=== PATIENT | male | born 1945 | race Caucasian/White ===

== ENCOUNTER 2018-10-24 17:11 | Inpatient (IN) | payer MEDICARE, OTHER ==
[2018-10-24] MEDS ORDERED: ASPIRIN 81 MG TABLET, CHEWABLE PO ONE (17:23)
[2018-10-24 17:42] LABS: ABSOLUTE BASOPHILS # (AUTO) 0.1 10^3/uL (0.0-0.2); ABSOLUTE EOSINOPHILS # (AUTO) 0.2 10^3/uL (0.0-0.6); ABSOLUTE LYMPHOCYTES (AUTO) 1.9 10^3/uL (0.5-4.7); ABSOLUTE MONOCYTES (AUTO) 0.7 10^3/uL (0.1-1.4); ABSOLUTE NEUT (AUTO) 5.1 10^3/uL (1.7-8.2); EOSINOPHILS % (AUTO) 2.3 % (0-6); HEMATOCRIT 41.4 % (37.9-51.0); HEMOGLOBIN 14.2 g/dL (13.5-17.0); LYMPHOCYTES % (AUTO) 23.6 % (13-45); MEAN CORPUSCULAR HEMOGLOBIN 29.5 pg (27.0-33.4); MEAN CORPUSCULAR HGB CONC 34.2 g/dL (32.0-36.0); MEAN CORPUSCULAR VOLUME 86 fl (80-97); MONOCYTES % (AUTO) 8.6 % (3-13); PLATELET COUNT 204 10^3/uL (150-450); SEGMENTED NEUTROPHILS % (AUTO) 64.5 % (42-78); TOTAL CELLS COUNTED % (AUTO) 100 %; WHITE BLOOD COUNT 7.9 10^3/uL (4.0-10.5)
[2018-10-24 18:02] LABS: ALANINE AMINOTRANSFERASE 46 U/L (21-72); ALBUMIN 4.8 g/dL (3.5-5.0); ALKALINE PHOSPHATASE 70 U/L (38-126); ANION GAP 10 (5-19); ASPARTATE AMINO TRANSFERASE 41 U/L (17-59); BILIRUBIN,DIRECT 0.3 mg/dL (0.0-0.4); BILIRUBIN,TOTAL 0.5 mg/dL (0.2-1.3); BLOOD UREA NITROGEN 22 mg/dL (7-20); CALCIUM 9.6 mg/dL (8.4-10.2); CARBON DIOXIDE 32 mmol/L (22-30); CHLORIDE 101 mmol/L (98-107); CREATINE KINASE 490 U/L (55-170); GLUCOSE 170 mg/dL (75-110); POTASSIUM 3.8 mmol/L (3.6-5.0); SODIUM 142.6 mmol/L (137-145); TOTAL PROTEIN 7.3 g/dL (6.3-8.2)
[2018-10-24 18:12] LABS: CREATINE KINASE MB 6.03 ng/mL (<4.55)
--- NOTE | 2018-10-24 18:12 | RADIOLOGY REPORT (SQ) ---
EXAM DESCRIPTION: CHEST SINGLE VIEW COMPLETED DATE/TIME: 10/24/2018 5:48 pm REASON FOR STUDY: cp COMPARISON: None. EXAM PARAMETERS: NUMBER OF VIEWS: One view. TECHNIQUE: Single frontal radiographic view of the chest acquired. RADIATION DOSE: NA LIMITATIONS: None. FINDINGS: LUNGS AND PLEURA: No opacities, masses or pneumothorax. No pleural effusion. MEDIASTINUM AND HILAR STRUCTURES: No masses. Contour normal. HEART AND VASCULAR STRUCTURES: Heart normal in size. Normal vasculature. BONES: No acute findings. HARDWARE: Lower thoracic posterior fusion hardware. OTHER: Mildly elevated right hemidiaphragm. IMPRESSION: NO ACUTE RADIOGRAPHIC FINDING IN THE CHEST. TECHNICAL DOCUMENTATION: JOB ID: [id number] [id number] 2010 [employer]- All Rights Reserved Reading location - IP/workstation name: [email or web address]
[2018-10-24 18:13] LABS: TROPONIN I 0.039 ng/mL
--- NOTE | 2018-10-24 21:21 | ER Document Report ---
ED General - General Chief Complaint: Chest Pain Stated Complaint: CHEST PAIN Time Seen by Provider: 10/24/18 18:24 Primary Care Provider: DARIELA PRIETO MD [Primary Care Provider] - Follow up as needed Mode of Arrival: Ambulatory Information source: Patient Notes: This is a 73-year-old man with a history of coronary artery disease (multiple stents), GERD (history of fundoplication) who presents to the emergency room with an episode of chest discomfort which she describes as "needling". He does state he had some sharp pain in the left arm. He states that it is not exactly like the anginal equivalents he has had in the past. He took a GI cocktail with out significant relief. 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 Currently the patient states he feels very good. - HPI Onset: Last week Onset/Duration: Intermittent Quality of pain: Other - "Needling" Severity: Mild Pain Level: Denies Associated symptoms: denies: Diarrhea, Fever, Nausea, Vomiting, Shortness of breath Exacerbated by: Denies Relieved by: Denies Similar symptoms previously: Yes Recently seen / treated by doctor: Yes - Related Data Allergies/Adverse Reactions: carbamazepine [From Tegretol] Allergy (Verified 10/24/18 17:41) isosorbide [From Imdur] Allergy (Verified 10/24/18 17:41) Past Medical History - General Information source: Patient - Social History Smoking Status: Never Smoker Cigarette use (# per day): No Chew tobacco use (# tins/day): No Frequency of alcohol use: None Drug Abuse: None Lives with: Spouse/Significant other Family History: None Patient has suicidal ideation: No Patient has homicidal ideation: No - Past Medical History Cardiac Medical History: Reports: Hx Heart Attack, Hx Hypercholesterolemia, Hx Hypertension Endocrine Medical History: Reports: Hx Diabetes Mellitus Type 2 Renal/ Medical History: Denies: Hx Peritoneal Dialysis Past Surgical History: Reports: Hx Cardiac Catheterization - 8 stents, Hx Tricia cystectomy, Hx Orthopedic Surgery - spinal Review of Systems - Review of Systems Constitutional: denies: Chills, Fever EENT: No symptoms reported Cardiovascular: Chest pain. denies: Syncope, Edema Respiratory: denies: Cough, Hemoptysis, Short of breath, Wheezing Gastrointestinal: See HPI Genitourinary: No symptoms reported Male Genitourinary: No symptoms reported Musculoskeletal: No symptoms reported Skin: No symptoms reported Hematologic/Lymphatic: No symptoms reported Neurological/Psychological: No symptoms reported Physical Exam - Vital signs Vitals: Temp Pulse Resp BP Pulse Ox 99.3 F 78 18 168/81 H 96 10/24/18 17:21 10/24/18 17:21 10/24/18 17:21 10/24/18 17:21 10/24/18 17:21 Notes: Physical exam: GENERAL: he is alert and oriented x3, no acute distress HEAD: Atraumatic, normocephalic. EYES: Pupils equal round and reactive to light, extraocular movements intact, sclera anicteric, conjunctiva are normal. ENT: TMs normal, nares patent, oropharynx clear without exudates. Moist mucous membranes. NECK: Normal range of motion, supple without obvious mass or JVD. LUNGS: Breath sounds clear to auscultation bilaterally and equal. No wheezes ra les or rhonchi. HEART: Regular rate and rhythm without murmurs, rubs or gallops. ABDOMEN: Soft, normoactive bowel sounds. No tenderness to palpation. No guarding, no rebound. No masses appreciated. EXTREMITIES: Normal range of motion, no pitting or edema. No clubbing or cyanosis. NEUROLOGICAL: Cranial nerves II through XII grossly intact. Normal speech, moving all extremities. PSYCH: Normal mood, normal affect. SKIN: Warm, Dry, normal turgor, no rashes or lesions noted. Course - Vital Signs Vital signs: Temp Pulse Resp BP Pulse Ox 99.3 F 78 14 140/70 H 97 10/24/18 17:21 10/24/18 17:21 10/24/18 23:01 10/24/18 23:01 10/24/18 23:01 - Laboratory Result Diagrams: 10/24/18 17:30 10/24/18 17:30 Laboratory results interpreted by me: 10/24/18 10/24/18 17:30 17:30 Carbon Dioxide 32 H BUN 22 H Glucose 170 H Creatine Kinase 490 H CK-MB (CK-2) 6.03 H - Diagnostic Test Radiology reviewed: Image reviewed, Reports reviewed - X-rays clear - EKG Interpretation by Me Rate: Normal Rhythm: NSR - EKG shows normal sinus rhythm with a ventricular rate of 77, no acute ST-T wave changes Discharge - Discharge Clinical Impression: Chest pain Condition: Stable Disposition: ADMITTED OBSERVATION Admitting Provider: Hospitalist - dr plascencia Unit Admitted: Telemetry Referrals: DARIELA PRIETO MD [Primary Care Provider] - Follow up as needed
--- NOTE | 2018-10-24 22:05 | EKG REPORT ---
SEVERITY:- OTHERWISE NORMAL ECG - SINUS RHYTHM WITH ONE PVC. BORDERLINE LEFT AXIS DEVIATION : Confirmed by: Jake Hauser MD 24-Oct-2018 22:04:24
[2018-10-24] MEDS ORDERED: NITROGLYCERIN 0.4 MG/TAB 25 TAB/BOTTLE SL PRN (23:27)
[2018-10-24] MEDS ORDERED: ATORVASTATIN CALCIUM 80 MG TABLET PO ONE (23:45)
[2018-10-25 03:45] LABS: ANION GAP 9 (5-19); BLOOD UREA NITROGEN 20 mg/dL (7-20); CALCIUM 9.1 mg/dL (8.4-10.2); CARBON DIOXIDE 29 mmol/L (22-30); CHLORIDE 105 mmol/L (98-107); CREATINE KINASE 367 U/L (55-170); GLUCOSE 137 mg/dL (75-110); POTASSIUM 3.6 mmol/L (3.6-5.0); SODIUM 142.5 mmol/L (137-145); TRIGLYCERIDES 132 mg/dL (<150)
[2018-10-25 03:56] LABS: CREATINE KINASE MB 3.92 ng/mL (<4.55); DIRECT LDL 97 mg/dL (<100); TROPONIN I 0.072 ng/mL
[2018-10-25] MEDS: MAG HYDROX/AL HYDROX/SIMETH SUSP 30 ML UDCUP PO PRN ×2 (05:05→21:03)
[2018-10-25] MEDS ORDERED: ENALAPRILAT DIHYDRATE INJ/PF 1.25 MG/1 ML SDV IV ONE (05:32)
[2018-10-25] MEDS ORDERED: AMLODIPINE BESYLATE 5 MG TABLET PO ONE (05:32)
--- NOTE | 2018-10-25 05:46 | PDOC H&P ---
History of Present Illness Admission Date/PCP: 10/24/18 23:49 DARIELA PRIETO MD Patient complains of: Chest pain History of Present Illness: GALA STEELE SR is a 73 year old male with a past medical history of frequent GERD and esophageal spasm status post fundoplication, diabetes, hypertension, coronary artery disease and multiple stents by Dr. Warren at [facility]. Patient presents with several hours of retrosternal chest pain crushing in nature occurring at rest, 5 out of 5 intensity and radiating to his left arm. Suspecting esophageal spasm he took lidocaine with Mylanta which usually terminates his pain immediately but discomfort remained prompting evaluation in the emergency room. He denies palpitations, shortness of breath, nausea or vo miting. He admits multiple previous episodes. He denies recent change in medications or stressful event. In the emergency room he receives nitroglycerin which somewhat decreases his pain his workup is otherwise notable for an elevated total CK, indeterminate troponin and he is referred to the hospitalist for admission. Patient denies recent cardiac stress test or catheterization. Patient admits to excessive caffeine Past Medical History Cardiac Medical History: Reports: Myocardial Infarction, Hyperlipidema, Hypertension Endocrine Medical History: Reports: Diabetes Mellitus Type 2, Obesity GI Medical History: Reports: Gastroesophageal Reflux Disease, Other - Frequent debilitating esophageal spasm Musculoskeltal Medical History: Reports: None Psychiatric Medical History: Reports: None Traumatic Medical History: Reports: None Hematology: Reports: None Infectious Medical History: Reports: None Past Surgical History Past Surgical History: Reports: Cardiac Catheterization - 8 stents, Cholecystectomy, Orthopedic Surgery - spinal Social History Lives with: Spouse/Significant other Smoking Status: Former Smoker Cigarettes Packs Per Day: 3 Number of Years Smokin Frequency of Alcohol Use: None Hx Recreational Drug Use: No Drugs: None Hx Prescription Drug Abuse: No - Advance Directive Resuscitation Status: Full Code Family History Family History: Hypertension Parental Family History Reviewed: Yes Children Family History Reviewed: Yes Sibling(s) Family History Reviewed.: Yes Medication/Allergy Home Medications: Amlodipine Besylate [Norvasc 10 mg Tablet] 1 tab PO DAILY 10/24/18 Clopidogrel Bisulfate [Plavix 75 mg Tablet] 1 tab PO DAILY 10/24/18 Insulin Detemir [Levemir Insulin 100 units/mL] 42 units SQ DAILY 10/24/18 Nebivolol HCl [Bystolic] 1 tab PO DAILY 10/24/18 Pitavastatin Calcium [Livalo] 0.5 tab PO DAILY 10/24/18 Potassium Chloride [Klor-Con M20] 20 meq PO BID 10/24/18 Telmisartan 1 tab PO DAILY 10/24/18 Triamterene/Hydrochlorothiazid [Triamterene-Hctz 37.5-25 mg Cp] 1 each PO DAILY 10/24/18 Allergies/Adverse Reactions: carbamazepine [From Tegretol] Allergy (Verified 10/24/18 17:41) isosorbide [From Imdur] Allergy (Verified 10/24/18 17:41) morphine Adverse Reaction (Verified 10/25/18 01:15) Review of Systems Constitutional: ABSENT: chills, fever(s), headache(s), weight gain, weight loss Eyes: ABSENT: visual disturbances Ears: ABSENT: hearing changes Cardiovascular: ABSENT: chest pain, dyspnea on exertion, edema, orthropnea, p alpitations Respiratory: ABSENT: cough, hemoptysis Gastrointestinal: PRESENT: as per HPI, heartburn. ABSENT: abdominal pain, constipation, diarrhea, hematemesis, hematochezia, nausea, vomiting Genitourinary: ABSENT: dysuria, hematuria Musculoskeletal: ABSENT: joint swelling Integumentary: ABSENT: rash, wounds Neurological: ABSENT: abnormal gait, abnormal speech, confusion, dizziness, focal weakness, syncope Psychiatric: ABSENT: anxiety, depression, homidical ideation, suicidal ideation Endocrine: ABSENT: cold intolerance, heat intolerance, polydipsia, polyuria Hematologic/Lymphatic: ABSENT: easy bleeding, easy bruising Physical Exam Vital Signs: Temp Pulse Resp BP Pulse Ox 98 F 60 20 171/87 H 97 10/25/18 02:45 10/25/18 02:45 10/25/18 02:45 10/25/18 02:45 10/25/18 02:45 Intake & Output 10/23/18 10/24/18 10/25/18 11:59 11:59 11:59 Weight 104.6 kg General appearance: PRESENT: no acute distress, well-developed, well-nourished Head exam: PRESENT: atraumatic, normocephalic Eye exam: PRESENT: conjunctiva pink, EOMI, PERRLA. ABSENT: scleral icterus Ear exam: PRESENT: normal external ear exam Mouth exam: PRESENT: moist, tongue midline Neck exam: ABSENT: carotid bruit, JVD, lymphadenopathy, thyromegaly Respiratory exam: PRESENT: clear to auscultation andrzej. ABSENT: rales, rhonchi, wheezes Cardiovascular exam: PRESENT: RRR. ABSENT: diastolic murmur, rubs, systolic murmur Pulses: PRESENT: normal dorsalis pedis pul Vascular exam: PRESENT: normal capillary refill GI/Abdominal exam: PRESENT: normal bowel sounds, soft. ABSENT: distended, guarding, mass, organolmegaly, rebound, tenderness Rectal exam: PRESENT: deferred Extremities exam: PRESENT: full ROM. ABSENT: calf tenderness, clubbing, pedal edema Neurological exam: PRESENT: alert, awake, oriented to person, oriented to place, oriented to time, oriented to situation, CN II-XII grossly intact. ABSENT: motor sensory deficit Psychiatric exam: PRESENT: appropriate affect, normal mood. ABSENT: homicidal ideation, suicidal ideation Skin exam: PRESENT: dry, intact, warm. ABSENT: cyanosis, rash Results Laboratory Results: 10/24/18 17:30 10/25/18 03:15 10/24/18 10/24/18 10/25/18 17:30 17:30 03:15 WBC 7.9 RBC 4.80 Hgb 14.2 Hct 41.4 MCV 86 MCH 29.5 MCHC 34.2 RDW 14.0 Plt Count 204 Seg Neutrophils % 64.5 Lymphocytes % 23.6 Monocytes % 8.6 Eosinophils % 2.3 Basophils % 1.0 Absolute Neutrophils 5.1 Absolute Lymphocytes 1.9 Absolute Monocytes 0.7 Absolute Eosinophils 0.2 Absolute Basophils 0.1 Sodium 142.6 142.5 Potassium 3.8 3.6 Chloride 101 105 Carbon Dioxide 32 H 29 Anion Gap 10 9 BUN 22 H 20 Creatinine 0.80 0.76 Est GFR ( Amer) > 60 > 60 Est GFR (Non-Af Amer) > 60 > 60 Glucose 170 H 137 H Calcium 9.6 9.1 Total Bilirubin 0.5 AST 41 ALT 46 Alkaline Phosphatase 70 Total Protein 7.3 Albumin 4.8 Triglycerides 132 Cholesterol 155.40 LDL Cholesterol Direct 97 VLDL Cholesterol 26.0 HDL Cholesterol 39 L 10/24/18 10/24/18 10/24/18 17:30 17:30 21:15 Creatine Kinase 490 H CK-MB (CK-2) 6.03 H Troponin I 0.039 0.060 10/25/18 10/25/18 03:15 03:15 Creatine Kinase 367 H CK-MB (CK-2) 3.92 Troponin I 0.072 Impressions: Chest X-Ray 10/24/18 17:24 IMPRESSION: NO ACUTE RADIOGRAPHIC FINDING IN THE CHEST. Assessment & Plan - Diagnosis (1) Atypical chest pain Is this a current diagnosis for this admission?: Yes Plan: Atypical chest pain though the patient's pain is atypical he has known coronary artery disease and subsequently will observe and evaluation of acute coronary syndrome versus coronary artery disease with anginal equivalents versus GI source. Cardiac monitoring blood pressure Q6 hours ,TSH, lipid profile, serial cardiac enzymes and cardiac stress test (2) Esophageal spasm Is this a current diagnosis for this admission?: Yes Plan: Pepcid, Mylanta as needed, lifestyle modification, avoidance of reclining after eating and limiting caffeine. (3) GERD (gastroesophageal reflux disease) Is this a current diagnosis for this admission?: Yes Plan: Please see #2 (4) Diabetes Is this a current diagnosis for this admission?: Yes Plan: Hold metformin, Humalog sliding scale, follow-up A1c - Time Time Spent: 50 to 70 Minutes
--- NOTE | 2018-10-25 08:51 | EKG REPORT ---
SEVERITY:- ABNORMAL ECG - SINUS RHYTHM LVH WITH SECONDARY REPOLARIZATION ABNORMALITY : Confirmed by: Jake Hauser MD 25-Oct-2018 08:50:26
[2018-10-25 11:06] LABS: CREATINE KINASE MB 3.78 ng/mL (<4.55); TROPONIN I 0.053 ng/mL
[2018-10-25] MEDS: DOCUSATE SODIUM 100 MG CAPSULE PO SCH ×2 (11:27→18:00)
[2018-10-25] MEDS: LOSARTAN POTASSIUM 50 MG TABLET PO SCH (11:27)
[2018-10-25] MEDS: CLOPIDOGREL BISULFATE 75 MG TABLET PO SCH (11:27)
[2018-10-25] MEDS: TRIAMTERENE/HYDROCHLOROTHIAZIDE 37.5-25 MG TABLET PO SCH (11:28)
--- NOTE | 2018-10-25 14:15 | PDOC PROGRESS REPORT ---
Subjective Progress Note for:: 10/25/18 Subjective:: Patient was seen and examined today. He could not do stress test today because his blood pressure was too high and he received antihypertensive medications this morning. He is currently stable and pain-free. Reason For Visit: CP CAD Physical Exam Vital Signs: Temp Pulse Resp BP Pulse Ox 97.7 F 57 L 12 152/81 H 95 10/25/18 07:06 10/25/18 07:06 10/25/18 07:06 10/25/18 07:06 10/25/18 07:06 Intake & Output 10/24/18 10/25/18 10/26/18 06:59 06:59 06:59 Weight 229 lb 0.964 oz General appearance: PRESENT: no acute distress, cooperative Head exam: PRESENT: atraumatic, normocephalic Eye exam: PRESENT: EOMI, PERRLA Mouth exam: PRESENT: moist, neck supple Neck exam: ABSENT: meningismus, tenderness Respiratory exam: PRESENT: clear to auscultation andrzej. ABSENT: accessory muscle use Cardiovascular exam: PRESENT: RRR Pulses: PRESENT: normal radial pulses GI/Abdominal exam: PRESENT: normal bowel sounds, soft Rectal exam: PRESENT: deferred Musculoskeletal exam: PRESENT: ambulatory. ABSENT: deformity Neurological exam: PRESENT: alert, awake, oriented to person, oriented to place, oriented to time, oriented to situation Results Laboratory Results: 10/24/18 17:30 10/25/18 03:15 10/24/18 10/24/18 10/25/18 17:30 17:30 03:15 WBC 7.9 RBC 4.80 Hgb 14.2 Hct 41.4 MCV 86 MCH 29.5 MCHC 34.2 RDW 14.0 Plt Count 204 Seg Neutrophils % 64.5 Lymphocytes % 23.6 Monocytes % 8.6 Eosinophils % 2.3 Basophils % 1.0 Absolute Neutrophils 5.1 Absolute Lymphocytes 1.9 Absolute Monocytes 0.7 Absolute Eosinophils 0.2 Absolute Basophils 0.1 Sodium 142.6 142.5 Potassium 3.8 3.6 Chloride 101 105 Carbon Dioxide 32 H 29 Anion Gap 10 9 BUN 22 H 20 Creatinine 0.80 0.76 Est GFR ( Amer) > 60 > 60 Est GFR (Non-Af Amer) > 60 > 60 Glucose 170 H 137 H Calcium 9.6 9.1 Total Bilirubin 0.5 AST 41 ALT 46 Alkaline Phosphatase 70 Total Protein 7.3 Albumin 4.8 Triglycerides 132 Cholesterol 155.40 LDL Cholesterol Direct 97 VLDL Cholesterol 26.0 HDL Cholesterol 39 L 10/24/18 10/24/18 10/24/18 17:30 17:30 21:15 Creatine Kinase 490 H CK-MB (CK-2) 6.03 H Troponin I 0.039 0.060 10/25/18 10/25/18 10/25/18 03:15 03:15 10:00 Creatine Kinase 367 H CK-MB (CK-2) 3.92 3.78 Troponin I 0.072 0.053 Impressions: Chest X-Ray 10/24/18 17:24 IMPRESSION: NO ACUTE RADIOGRAPHIC FINDING IN THE CHEST. Assessment & Plan - Diagnosis (1) Atypical chest pain Is this a current diagnosis for this admission?: Yes Plan: Stress test was postponed till tomorrow. Continue aspirin and Plavix. Continue nitroglycerin as needed. (2) Diabetes Is this a current diagnosis for this admission?: Yes Plan: Continue to hold metformin. Continue insulin sliding scale. Continue to monitor glucose levels. (3) Esophageal spasm Is this a current diagnosis for this admission?: Yes Plan: Continue current medications. (4) GERD (gastroesophageal reflux disease) Is this a current diagnosis for this admission?: Yes Plan: Continue antacids.
[2018-10-25 17:37] LABS: CREATINE KINASE MB 4.11 ng/mL (<4.55)
[2018-10-25 17:41] LABS: TROPONIN I 0.095 ng/mL
[2018-10-25] MEDS: POTASSIUM CHLORIDE 10 MEQ CAPSULE.ER PO SCH (18:00)
[2018-10-25] MEDS ORDERED: (PENDING PHARMACY ID) (Potassium Chloride [Klor-Con M20] 20 MEQ) PO SCH (18:00)
[2018-10-25] MEDS: INSULIN DETEMIR 100 UNIT/ML 3 ML PEN SUBCUT SCH (18:01)
--- NOTE | 2018-10-25 18:18 | Progress Note ---
Provider Note Provider Note: called by nursing to give elevated troponin results of 0.095. Dr Carrion is not available. i called and spoke with Dr Carrion- he wants to consulted Dr brar- i spoke to him- he recommends CT chest w/ IV contrast and heparin gtt. will trend troponins.
--- NOTE | 2018-10-25 19:20 | RADIOLOGY REPORT (SQ) ---
EXAM DESCRIPTION: CTA CHEST COMPLETED DATE/TIME: 10/25/2018 6:58 pm REASON FOR STUDY: elevated troponin, chest pain ?disection COMPARISON: None. TECHNIQUE: CT scan of the chest performed using helical scanning technique with dynamic intravenous contrast injection. Images reviewed with lung, soft tissue and bone windows. Reconstructed coronal and sagittal MPR images reviewed. Additional 3 dimensional post-processing performed to develop Maximal Intensity Projection images (AK P). All images stored on PACS. All CT scanners at this facility use dose modulation, iterative reconstruction, and/or weight based d osing when appropriate to reduce radiation dose to as low as reasonably achievable (ALARA). [facility]: Dose Right [facility]: CareDose [facility]: Dose Right [facility]: Teradose 4D [facility]: iSSimple CONTRAST TYPE AND DOSE: contrast/concentration: Isovue 350.00 mg/ml; Total Contrast Delivered: 70.0 ml; Total Saline Delivered: 72.0 ml Contrast bolus not optimized for the pulmonary arteries. RENAL FUNCTION: GFR > 60. RADIATION DOSE: CT Rad equipment meets quality standard of care and radiation dose reduction techniq ues were employed. CTDIvol: 27.9 - 46.3 mGy. DLP: 1090 mGy-cm. . LIMITATIONS: None. FINDINGS: LUNGS AND PLEURA: No masses, infiltrates, or pneumothorax. Chronic scarring in the right lung base. No pleural effusions or pleural calcifications. AORTA AND GREAT VESSELS: No aortic aneurysm or dissection. HEART: No pericardial effusion. Heavy coronary artery calcifications. PULMONARY ARTERIES: No emboli visualized in the main pulmonary arteries. Contrast bolus timing limit s evaluation of the segmental branches. HILAR AND MEDIASTINAL STRUCTURES: No identified masses or abnormal nodes. HARDWARE: None in the chest. UPPER ABDOMEN: No acute findings. Small upper retroperitoneal lymph nodes. Limited exam. THYROID AND OTHER SOFT TISSUES: No masses. No adenopathy. BONES: No acute finding. 3D MIPS: Confirm above findings. OTHER: No other significant finding. IMPRESSION: No aortic aneurysm or dissection.No emboli visualized in the main pulmonary arteries. C ontrast bolus timing limits evaluation of the segmental branches. COMMENT: Quality ID # [id number]: Final reports with documentation of one or more dose reduction techniques (e.g., Automated exposure control, adjustment of the mA and/or kV according to patient size, use of iterative reconstruction technique) TECHNICAL DOCUMENTATION: JOB ID: [id number] [place]-72 2010 [employer]- All Rights Reserved Reading location - IP/workstation name: [email or web address]
[2018-10-25] MEDS ORDERED: GLUCAGON,HUMAN RECOMB 1 MG INJ IM PRN (20:00)
[2018-10-25] MEDS ORDERED: DEXTROSE 50%-WATER SYRINGE 25 GM/50 ML DOSE IV PRN (20:00)
[2018-10-25] MEDS ORDERED: DEXTROSE 40% GEL 15 GM TUBE PO PRN (20:00)
[2018-10-25] MEDS ORDERED: DEXTROSE 40% GEL 15 GM TUBE X 2 PO PRN (20:00)
[2018-10-25] MEDS ORDERED: DEXTROSE 50%-WATER SYRINGE 12.5 GM/25 ML DOSE IV PRN (20:00)
[2018-10-25 20:22] LABS: INTERNATIONAL RATION (INR) 0.94
[2018-10-25 20:23] LABS: PARTIAL THROMBOPLASTIN TIME 25.2 SEC (23.5-35.8)
[2018-10-25 20:38] LABS: HEMATOCRIT 42.2 % (37.9-51.0); HEMOGLOBIN 14.1 g/dL (13.5-17.0); MEAN CORPUSCULAR HEMOGLOBIN 28.9 pg (27.0-33.4); MEAN CORPUSCULAR HGB CONC 33.4 g/dL (32.0-36.0); MEAN CORPUSCULAR VOLUME 86 fl (80-97); PLATELET COUNT 194 10^3/uL (150-450); RED BLOOD COUNT 4.88 10^6/uL (4.35-5.55); RED CELL DISTRIBUTION WIDTH 14.1 % (11.5-14.0); WHITE BLOOD COUNT 8.2 10^3/uL (4.0-10.5)
[2018-10-25] MEDS: HEPARIN SOD (PORCINE) 1,000 UNIT/ML 10 ML VIAL IV PRN (20:44)
[2018-10-25] MEDS: HEPARIN SODIUM,PORCINE/D5W 25,000 UNIT/250 ML RTUINJ IV PRN (20:51)
[2018-10-25] MEDS: ATORVASTATIN CALCIUM 10 MG TABLET PO SCH (21:00)
[2018-10-25] MEDS: INSULIN LISPRO 100 UNIT/ML 3 ML VIAL SUBCUT SCH (21:04)
[2018-10-25] MEDS ORDERED: ATORVASTATIN CALCIUM 80 MG TABLET PO SCH (22:00)
[2018-10-26] MEDS: HEPARIN SOD (PORCINE) 1,000 UNIT/ML 10 ML VIAL IV PRN (03:35)
[2018-10-26] MEDS: HEPARIN SODIUM,PORCINE/D5W 25,000 UNIT/250 ML RTUINJ IV PRN ×2 (03:36→17:05)
[2018-10-26] MEDS ORDERED: ENALAPRILAT DIHYDRATE INJ/PF 1.25 MG/1 ML SDV IV ONE (04:15)
--- NOTE | 2018-10-26 05:01 | PDOC TRANSFER SUMMARY ---
General Admission Date/PCP: 10/24/18 23:49 DARIELA PRIETO MD Resuscitation Status: Full Code - Transfer Diagnosis (1) Atypical chest pain Is this a current diagnosis for this admission?: Yes (2) Esophageal spasm Is this a current diagnosis for this admission?: Yes (3) GERD (gastroesophageal reflux disease) Is this a current diagnosis for this admission?: Yes (4) Diabetes Is this a current diagnosis for this admission?: Yes (5) Non-ST elevation [place] (NSTEMI) Is this a current diagnosis for this admission?: Yes Diagnosis Summary: Patient admitted with somewhat atypical chest pain occurring at rest which resembled a typical episode of esophageal spasm. Patient took Mylanta with lidocaine with significant improvement but lingering discomfort prompting evaluation in the emergency department. He was found to have indeterminate t roponin of 0.039. He had no acute EKG changes he was admitted for observation with Plavix, enalapril, Bystolic, Norvasc and aspirin. He was scheduled for Cardiolite stress test however complained of chest discomfort postponing the exam but placed on IV heparin. Over the past 12 hours he has remained asymptomatic however his troponin has risen to 0.7 again without EKG changes. Given the lack of cardiac catheterization with intervention at our facility and cardiology care centered at [facility] with Dr. Warren. He is graciously accepted for transfer at [facility] by Dr. Hull. Patient remains in stable condition without renal failure. - Transfer Medications Home Medications: Amlodipine Besylate [Norvasc 10 mg Tablet] 10 mg PO DAILY 10/25/18 Clopidogrel Bisulfate [Plavix 75 mg Tablet] 75 mg PO DAILY 10/25/18 Diphenoxylate HCl/Atropine [Lomotil Tablet] 1 each PO QIDP PRN 10/25/18 Insulin Detemir [Levemir Insulin 300 Units/3 ml Insuln.pen] 47 unit SUBCUT QPM 10/25/18 Nebivolol HCl [Bystolic] 20 mg PO DAILY 10/25/18 Nitroglycerin [Nitrostat 0.4 mg (1/150 Gr) Tabs 25/Bottle] 1 tab SL Q5MP PRN 10/25/18 Pitavastatin Calcium [Livalo] 2 mg PO QPM 10/25/18 Potassium Chloride [Klor-Con M20] 20 meq PO BID 10/25/18 Telmisartan [Micardis 80 mg Tablet] 80 mg PO DAILY 10/25/18 Triamterene/Hydrochlorothiazid [Triamterene-Hctz 37.5-25 mg Cp] 1 each PO DAILY 10/25/18 Transfer Medications: Current Medications Al Hydrox/Mg Hydrox/Simethicone (Maalox Plus Susp 30 Udcup) 30 ml PO Q4HP PRN PRN Reason: HEARTBURN Stop: 11/23/18 23:26 Last Admin: 10/25/18 21:03 Dose: 30 ml Documented by: Amlodipine Besylate (Norvasc 10 Mg Tablet) 10 mg PO DAILY KB Stop: 11/25/18 09:59 Atorvastatin Calcium (Lipitor 10 Mg Tablet) 10 mg PO QHS KB Stop: 11/24/18 21:59 Last Admin: 10/25/18 21:00 Dose: 10 mg Documented by: Clopidogrel Bisulfate (Plavix 75 Mg Tablet) 75 mg PO DAILY [facility] Stop: 11/24/18 09:59 Last Admin: 10/25/18 11:27 Dose: 75 mg Documented by: Dextrose (Dextrose Inj 50% Syringe (25 Gm/50 Ml)) 12.5 gm IV PRN PRN; Protocol PRN Reason: FOR BG 50-69 IN ALERT PATIENT Stop: 11/24/18 19:59 Dextrose (Dextrose Inj 50% Syringe (25 Gm/50 Ml)) 25 gm IV PRN PRN; Protocol Stop: 11/24/18 19:59 Docusate Sodium (Colace 100 Mg Capsule) 100 mg PO BID KB Stop: 11/24/18 09:59 Last Admin: 10/25/18 18:00 Dose: Not Given Documented by: Glucagon (Glucagen Inj 1 Mg Vial) 1 mg IM PRN PRN; Protocol PRN Reason: EVALUATE FOR BG < 70 Stop: 11/24/18 19:59 Glucose (Glutose 40% Gel 15 Gm Tube) 15 gm PO PRN PRN; Protocol PRN Reason: FOR BG 50-69 IN ALERT PATIENT Stop: 11/24/18 19:59 Glucose (Glutose 40% Gel 15 Gm Tube) 30 gm PO PRN PRN; Protocol PRN Reason: FOR BG < 50 IN ALERT PATIENT Stop: 11/24/18 19:59 Heparin Sodium (Porcine) (Heparin Inj 1,000 Unit/Ml 10 Ml Vial) 0 - 12,000 unit IV .BOLUS PER PROTOCOL PRN; Protocol PRN Reason: RESPOND TO aPTT VALUES Stop: 11/24/18 18:59 Last Admin: 10/26/18 03:35 Dose: 4,000 units Documented by: Heparin Sodium/Dextrose (Heparin Rtu 25,000 Unit/250 Ml D5w Premix) 25,000 unit in 250 mls @ 0 mls/hr IV CONTINUOUS PRN; Protocol PRN Reason: THIS MED IS NOT "PRN" Stop: 11/24/18 18:59 Last Admin: 10/26/18 03:36 Dose: 14.54 ml/hr, 14.54 mls/hr Documented by: Insulin Detemir (Levemir Insulin 300 Units/3 Ml Insuln.Pen) 47 unit SUBCUT QPM [facility] Stop: 11/24/18 17:59 Last Admin: 10/25/18 18:01 Dose: 47 unit Documented by: Insulin Human Lispro (Humalog Insulin 100 Unit/1 Ml 3 Ml Vial) 0 - 12 unit SUBCUT ACHS [facility]; Protocol Stop: 11/24/18 21:59 Last Admin: 10/25/18 21:04 Dose: 2 unit Documented by: Losartan Potassium (Cozaar 50 Mg Tablet) 100 mg PO DAILY [facility] Stop: 11/24/18 09:59 Last Admin: 10/25/18 11:27 Dose: 100 mg Documented by: Nebivolol (Bystolic 10 Mg Tablet) 20 mg PO DAILY [facility] Stop: 11/25/18 09:59 Nitroglycerin (Nitrostat 0.4 Mg (1/150 Gr) Tabs 25/Bottle) 1 tab SL Q5MP PRN PRN Reason: FOR CHEST PAIN Last Admin: 10/25/18 07:11 Dose: 1 tab Documented by: Potassium Chloride (Klor-Con 10 Meq Capsule Er) 20 meq PO BID [facility] Stop: 11/24/18 17:59 Last Admin: 10/25/18 18:00 Dose: 20 meq Documented by: Sodium Chloride (Saline Flush 2.5 Ml Monoject Prefil Syrin) 2.5 ml IV Q8 [facility] Stop: 11/24/18 05:59 Last Admin: 10/25/18 21:00 Dose: 2.5 ml Documented by: Triamterene/HCTZ (Maxzide-25 Tablet) 1 tab PO DAILY [facility] Stop: 11/24/18 09:59 Last Admin: 10/25/18 11:28 Dose: 1 tab Documented by: - Allergies Allergies/Adverse Reactions: carbamazepine [From Tegretol] Allergy (Verified 10/24/18 17:41) isosorbide [From Imdur] Allergy (Verified 10/24/18 17:41) morphine Adverse Reaction (Verified 10/25/18 01:15) Hospital Course Hospital Course: Patient admitted with somewhat atypical chest pain occurring at rest which resembled a typical episode of esophageal spasm. Patient took Mylanta with lidocaine with significant improvement but lingering discomfort prompting evaluation in the emergency department. He was found to have indeterminate troponin of 0.039. He had no acute EKG changes he was admitted for observation with Plavix, enalapril, Bystolic, Norvasc and aspirin. He was scheduled for Cardiolite stress test however complained of chest discomfort postponing the exam but placed on IV heparin. Over the past 12 hours he has remained asymptomatic however his troponin has risen to 0.7 again without EKG changes. Given the lack of cardiac catheterization with intervention at our facility and cardiology care centered at [facility] with Dr. Warren. He is graciously accepted for transfer at [facility] by Dr. Hull. Patient remains in stable condition without renal failure. Physical Exam Vital Signs: Temp Pulse Resp BP Pulse Ox 98.1 F 64 20 165/75 H 96 10/25/18 23:00 10/26/18 04:17 10/25/18 23:00 10/26/18 04:17 10/25/18 23:00 Intake & Output 10/24/18 10/25/18 10/26/18 11:59 11:59 11:59 Intake Total 765 Balance 765 Weight 103.9 kg General appearance: PRESENT: no acute distress, well-developed, well-nourished Head exam: PRESENT: atraumatic, normocephalic Eye exam: PRESENT: conjunctiva pink, EOMI, PERRLA. ABSENT: scleral icterus Ear exam: PRESENT: normal external ear exam Mouth exam: PRESENT: moist, tongue midline Neck exam: ABSENT: carotid bruit, JVD, lymphadenopathy, thyromegaly Respiratory exam: PRESENT: clear to auscultation andrzej. ABSENT: rales, rhonchi, wheezes Cardiovascular exam: PRESENT: RRR. ABSENT: diastolic murmur, rubs, systolic murmur Pulses: PRESENT: normal dorsalis pedis pul Vascular exam: PRESENT: normal capillary refill GI/Abdominal exam: PRESENT: normal bowel sounds, soft. ABSENT: distended, guarding, mass, organolmegaly, rebound, tenderness Rectal exam: PRESENT: deferred Extremities exam: PRESENT: full ROM. ABSENT: calf tenderness, clubbing, pedal edema Neurological exam: PRESENT: alert, awake, oriented to person, oriented to place, oriented to time, oriented to situation, CN II-XII grossly intact. ABSENT: motor sensory deficit Psychiatric exam: PRESENT: appropriate affect, normal mood. ABSENT: homicidal ideation, suicidal ideation Skin exam: PRESENT: dry, intact, warm. ABSENT: cyanosis, rash Results Laboratory Results: 10/25/18 20:25 10/25/18 03:15 10/25/18 20:25 WBC 8.2 RBC 4.88 Hgb 14.1 Hct 42.2 MCV 86 MCH 28.9 MCHC 33.4 RDW 14.1 H Plt Count 194 10/24/18 10/24/18 10/24/18 17:30 17:30 21:15 Creatine Kinase 490 H CK-MB (CK-2) 6.03 H Troponin I 0.039 0.060 10/25/18 10/25/18 10/25/18 03:15 03:15 10:00 Creatine Kinase 367 H CK-MB (CK-2) 3.92 3.78 Troponin I 0.072 0.053 10/25/18 10/26/18 16:30 02:55 Creatine Kinase CK-MB (CK-2) 4.11 Troponin I 0.095 0.704 Impressions: Chest X-Ray 10/24/18 17:24 IMPRESSION: NO ACUTE RADIOGRAPHIC FINDING IN THE CHEST. Chest/Abdomen CTA 10/25/18 00:00 IMPRESSION: No aortic aneurysm or dissection.No emboli visualized in the main pulmonary arteries. Contrast bolus timing limits evaluation of the segmental branches. Plan Time Spent: Less than 30 Minutes - Transfer to tertiary care for cardiac catheterization with interventional abilities
[2018-10-26] MEDS ORDERED: NITROGLYCERIN 5 MG (0.2 MG/HR) PATCH.TD24 TD ONE (05:19)
[2018-10-26] MEDS ORDERED: ASPIRIN 81 MG TABLET, CHEWABLE PO ONE (05:30)
--- NOTE | 2018-10-26 08:42 | Physician Advisory Note ---
Physician Advisor ProgressNote .: Pursuant to the plan for [facility], I have reviewed the medical record for this patient. Physician Advisor Statement: Please consider documentin. Most likely location (wall/artery) of NSTEMI, if EKG gives any hint. Status: Medicare pt w/CP, stress test had to be delayed due to pt having recurrent CP, therefore requiring a 2nd MN in hospital care/monitoring. Subsequently ruled in for NSTEMI. Appropriate for conversion to Inpatient status (as of 11/22/18 PM), even though plan is for transfer today. Thanks! CK
[2018-10-26] MEDS: INSULIN LISPRO 100 UNIT/ML 3 ML VIAL SUBCUT SCH ×4 (09:23→21:31)
[2018-10-26] MEDS: LOSARTAN POTASSIUM 50 MG TABLET PO SCH (09:30)
[2018-10-26] MEDS: DOCUSATE SODIUM 100 MG CAPSULE PO SCH ×2 (09:30→17:07)
[2018-10-26] MEDS: NEBIVOLOL HCL 10 MG TABLET PO SCH (09:31)
[2018-10-26] MEDS: CLOPIDOGREL BISULFATE 75 MG TABLET PO SCH (09:31)
[2018-10-26] MEDS: POTASSIUM CHLORIDE 10 MEQ CAPSULE.ER PO SCH ×2 (09:31→17:06)
[2018-10-26] MEDS: TRIAMTERENE/HYDROCHLOROTHIAZIDE 37.5-25 MG TABLET PO SCH (09:31)
[2018-10-26] MEDS: AMLODIPINE BESYLATE 10 MG TABLET PO SCH (09:34)
[2018-10-26] MEDS ORDERED: INSULIN DETEMIR 100 UNIT/ML 3 ML PEN SUBCUT SCH (10:00)
[2018-10-26] MEDS ORDERED: PITAVASTATIN CALCIUM PO SCH (10:00)
[2018-10-26] MEDS ORDERED: NEBIVOLOL HCL PO SCH (10:00)
[2018-10-26] MEDS: NORMAL SALINE 1000 ML 1,000 ML IV PRN (11:40)
--- NOTE | 2018-10-26 16:57 | EKG REPORT ---
SEVERITY:- ABNORMAL ECG - SINUS RHYTHM LEFT VENTRICULAR HYPERTROPHY : Confirmed by: Millie Quiñones 26-Oct-2018 16:56:52
[2018-10-26] MEDS: INSULIN DETEMIR 100 UNIT/ML 3 ML PEN SUBCUT SCH (17:07)
--- NOTE | 2018-10-26 20:29 | PDOC PROGRESS REPORT ---
Subjective Progress Note for:: 10/26/18 Subjective:: Patient pending transfer to [facility] at [place]. Nursing staff has contacted [facility] several times and finally patient still pending transfer. During the day patient has been denying having any active chest pain. He has been on heparin drip, aspirin, Plavix, atorvastatin, ARB beta-blockers. Blood pressure 146-123, pulse 52-64, respiratory rate of 18, saturating 96% on room air. Reason For Visit: CARDIAC Physical Exam Vital Signs: Temp Pulse Resp BP Pulse Ox 97.4 F 64 18 146/79 H 96 10/26/18 15:19 10/26/18 19:00 10/26/18 15:19 10/26/18 15:19 10/26/18 15:19 Intake & Output 10/25/18 10/26/18 10/27/18 06:59 06:59 06:59 Intake Total 765 86 Balance 765 86 Weight 103.9 kg 101.5 kg General appearance: PRESENT: no acute distress, well-developed, well-nourished Head exam: PRESENT: atraumatic, normocephalic Eye exam: PRESENT: conjunctiva pink, EOMI, PERRLA. ABSENT: scleral icterus Ear exam: PRESENT: normal external ear exam Mouth exam: PRESENT: moist, tongue midline Neck exam: ABSENT: carotid bruit, JVD, lymphadenopathy, thyromegaly Respiratory exam: PRESENT: clear to auscultation andrzej. ABSENT: rales, rhonchi, wheezes Cardiovascular exam: PRESENT: RRR. ABSENT: diastolic murmur, rubs, systolic murmur Pulses: PRESENT: normal dorsalis pedis pul Vascular exam: PRESENT: normal capillary refill GI/Abdominal exam: PRESENT: normal bowel sounds, soft. ABSENT: distended, guarding, mass, organolmegaly, rebound, tenderness Rectal exam: PRESENT: deferred Extremities exam: PRESENT: full ROM. ABSENT: calf tenderness, clubbing, pedal edema Neurological exam: PRESENT: alert, awake, oriented to person, oriented to place, oriented to time, oriented to situation, CN II-XII grossly intact. ABSENT: motor sensory deficit Psychiatric exam: PRESENT: appropriate affect, normal mood. ABSENT: homicidal ideation, suicidal ideation Skin exam: PRESENT: dry, intact, warm. ABSENT: cyanosis, rash Results Laboratory Results: 10/25/18 20:25 02/03/19 03:15 10/25/18 20:25 WBC 8.2 RBC 4.88 Hgb 14.1 Hct 42.2 MCV 86 MCH 28.9 MCHC 33.4 RDW 14.1 H Plt Count 194 10/24/18 10/24/18 10/24/18 17:30 17:30 21:15 Creatine Kinase 490 H CK-MB (CK-2) 6.03 H Troponin I 0.039 0.060 10/25/18 10/25/18 10/25/18 03:15 03:15 10:00 Creatine Kinase 367 H CK-MB (CK-2) 3.92 3.78 Troponin I 0.072 0.053 10/25/18 10/26/18 16:30 02:55 Creatine Kinase CK-MB (CK-2) 4.11 Troponin I 0.095 0.704 Impressions: Chest X-Ray 10/24/18 17:24 IMPRESSION: NO ACUTE RADIOGRAPHIC FINDING IN THE CHEST. Chest/Abdomen CTA 10/25/18 00:00 IMPRESSION: No aortic aneurysm or dissection.No emboli visualized in the main pulmonary arteries. Contrast bolus timing limits evaluation of the segmental branches. Assessment & Plan - Diagnosis (1) Non-ST elevation [place] (NSTEMI) Is this a current diagnosis for this admission?: Yes Plan: No active chest pain. Continue heparin drip, aspirin, Plavix, beta-blockers, ARB, statins. Follow-up troponins. Has been accepted at [facility] for possible cath by Dr. Warren. Pending transfer to [facility] at [place]. (2) Diabetes Is this a current diagnosis for this admission?: Yes Plan: Diabetic diet, long-acting insulin, sliding scale, adjust dosage as needed. (3) GERD (gastroesophageal reflux disease) Is this a current diagnosis for this admission?: Yes Plan: Continue PPIs.
[2018-10-26] MEDS: ATORVASTATIN CALCIUM 10 MG TABLET PO SCH (21:32)
[2018-10-27] MEDS ORDERED: DIPHENHYDRAMINE HCL 50 MG/ML VIAL INJ PRN (02:57)
[2018-10-27] MEDS ORDERED: DIPHENHYDRAMINE HCL 50 MG/ML VIAL IV PRN (03:00)
[2018-10-27 07:18] LABS: CREATINE KINASE MB 4.43 ng/mL (<4.55); TROPONIN I 0.72 ng/mL
[2018-10-27] MEDS: INSULIN LISPRO 100 UNIT/ML 3 ML VIAL SUBCUT SCH (08:04)
[2018-10-27] MEDS: NORMAL SALINE 1000 ML 1,000 ML IV PRN (08:05)
[2018-10-27] MEDS: LOSARTAN POTASSIUM 50 MG TABLET PO SCH (09:01)
[2018-10-27] MEDS: POTASSIUM CHLORIDE 10 MEQ CAPSULE.ER PO SCH (09:01)
[2018-10-27] MEDS: NEBIVOLOL HCL 10 MG TABLET PO SCH (09:02)
[2018-10-27] MEDS: TRIAMTERENE/HYDROCHLOROTHIAZIDE 37.5-25 MG TABLET PO SCH (09:02)
[2018-10-27] MEDS: CLOPIDOGREL BISULFATE 75 MG TABLET PO SCH (09:02)
[2018-10-27] MEDS: DOCUSATE SODIUM 100 MG CAPSULE PO SCH (09:02)
[2018-10-27] MEDS: AMLODIPINE BESYLATE 10 MG TABLET PO SCH (09:02)
[2018-10-27] MEDS ORDERED: ASPIRIN 81 MG TABLET, CHEWABLE PO SCH (10:00)
[2018-10-27 10:58] VITALS: BP 154/76
--- NOTE | 2018-10-27 21:26 | EKG REPORT ---
SEVERITY:- ABNORMAL ECG - SINUS RHYTHM LEFT AXIS DEVIATION LVH WITH SECONDARY REPOLARIZATION ABNORMALITY BORDERLINE PROLONGED QT INTERVAL : Confirmed by: Millie Quiñones 27-Oct-2018 21:25:25
== END 2018-10-27 10:59 | disposition short-term general hospital (02) | DRG 282 ==
LOC: ER 17:11 → EH 23:49 → 3N 10-25 02:34 → OBSVTOIN 10-26 10:49
PROVIDERS: ADMIT Internal Medicine; ATTEND Internal Medicine
DX: I21.4 Non-ST elevation (NSTEMI) myocardial infarction (principal); K22.4 Dyskinesia of esophagus; R07.89 Other chest pain; K21.9 Gastro-esophageal reflux disease without esophagitis; E11.9 Type 2 diabetes mellitus without complications; E66.9 Obesity, unspecified; I10 Essential (primary) hypertension; I25.10 Atherosclerotic heart disease of native coronary artery without angina pectoris; I25.2 Old myocardial infarction; Z79.899 Other long term (current) drug therapy; Z79.4 Long term (current) use of insulin; Z79.02 Long term (current) use of antithrombotics/antiplatelets; Z88.6 Allergy status to analgesic agent; Z88.8 Allergy status to other drugs, medicaments and biological substances; Z95.5 Presence of coronary angioplasty implant and graft; Z90.49 Acquired absence of other specified parts of digestive tract; Z87.891 Personal history of nicotine dependence; Z82.49 Family history of ischemic heart disease and other diseases of the circulatory system
CPT/HCPCS: 36415; 71045; 71275; 80048; 80053; 80061; 82550; 82553; 82962; 84484; 85025; 85027; 85610; 85730; 93005; 93010; 99285; G0378; J1200; J1644; J1815; J3490; J7030